=== PATIENT | male | born 1995 | race African-American/Black ===

== ENCOUNTER → 2018-03-24 | Outpatient (CLI) | payer MEDICAID ==
--- NOTE | 2018-03-24 16:34 | RADIOLOGY REPORT (SQ) ---
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 NUMBER OF VIEWS: Three views. TECHNIQUE: AP and lateral views of the sacrum and coccyx. LIMITATIONS: None. FINDINGS: MINERALIZATION: There is osteopenia. BONES: There appears to been a old injury of the lower sacrum and possibly coccyx. No evidence of an acute fracture or dislocation. There is some lucency within the proximal cortex raising the possibi lity of osteomyelitis. SOFT TISSUES: There is subcutaneous gas consistent with the known ulcer. OTHER: No other significant finding. IMPRESSION: Soft tissue gas. Slight lucency is noted in the cortex of the lower sacral segment. Os teomyelitis cannot be excluded. TECHNICAL DOCUMENTATION: JOB ID: [id number] [employer]- All Rights Reserved Reading location - IP/workstation name: [email or web address]
[2018-03-24 16:35] LABS: ABSOLUTE LYMPHOCYTES (AUTO) 1.3 10^3/uL (0.5-4.7); ABSOLUTE MONOCYTES (AUTO) 0.7 10^3/uL (0.1-1.4); ABSOLUTE NEUT (AUTO) 4.3 10^3/uL (1.7-8.2); BASOPHILS % (AUTO) 0.4 % (0-2); EOSINOPHILS % (AUTO) 0.2 % (0-6); HEMATOCRIT 31.8 % (37.9-51.0); LYMPHOCYTES % (AUTO) 20.4 % (13-45); MEAN CORPUSCULAR HEMOGLOBIN 23.5 pg (27.0-33.4); MEAN CORPUSCULAR HGB CONC 31.5 g/dL (32.0-36.0); MEAN CORPUSCULAR VOLUME 75 fl (80-97); MONOCYTES % (AUTO) 10.8 % (3-13); PLATELET COUNT 629 10^3/uL (150-450); RED BLOOD COUNT 4.27 10^6/uL (4.35-5.55); SEGMENTED NEUTROPHILS % (AUTO) 68.2 % (42-78); TOTAL CELLS COUNTED % (AUTO) 100 %; WHITE BLOOD COUNT 6.3 10^3/uL (4.0-10.5)
[2018-03-24 16:54] LABS: ALANINE AMINOTRANSFERASE 6 U/L (21-72); ALKALINE PHOSPHATASE 154 U/L (38-126); ANION GAP 8 (5-19); ASPARTATE AMINO TRANSFERASE 14 U/L (17-59); BILIRUBIN,DIRECT 0.2 mg/dL (0.0-0.4); BILIRUBIN,TOTAL 0.2 mg/dL (0.2-1.3); BLOOD UREA NITROGEN 14 mg/dL (7-20); C-REACTIVE PROTEIN 86.3 mg/L (<10.0); CALCIUM 8.6 mg/dL (8.4-10.2); CARBON DIOXIDE 28 mmol/L (22-30); CHLORIDE 103 mmol/L (98-107); GLUCOSE 90 mg/dL (75-110); POTASSIUM 4.4 mmol/L (3.6-5.0); SODIUM 138.8 mmol/L (137-145)
[2018-03-24 17:22] LABS: ERYTHROCYTE SEDIMENTATION RATE 78 mm/hr (0-15)
== END ==
LOC: RAD 15:45
PROVIDERS: ATTEND Nurse Practitioner
DX: L89.154 Pressure ulcer of sacral region, stage 4 (principal); M85.88 Other specified disorders of bone density and structure, other site
CPT/HCPCS: 36415; 72220; 80053; 85025; 85652; 86140

== ENCOUNTER → 2018-05-26 | Outpatient (CLI) | payer MEDICAID ==
--- NOTE | 2018-05-26 15:03 | RADIOLOGY REPORT (SQ) ---
EXAM DESCRIPTION: SACRUM AND COCCYX COMPLETED DATE/TIME: 05/26/2018 2:40 pm REASON FOR STUDY: L89.154 PRESSURE ULCER OF SACRAL REGION, STAGE 4 L89.154 PRESSURE ULCER OF SACRAL REGION, STAGE 4 COMPARISON: 04/13/2018 None. NUMBER OF VIEWS: Three views. TECHNIQUE: AP, lateral, and tilt views of the sacrum and coccyx. LIMITATIONS: None. FINDINGS: MINERALIZATION: Osteopenia. BONES: The osseous structures are stable in appearance. Deformity of the distal sacrum and coccyx, may be related prior remote injury. As on the prior examination, subcutaneous gas in the region of t he known ulcer adjacent to the distal sacrum-coccyx. No evidence for significant destruction of bone . SOFT TISSUES: See above discussion. OTHER: Moderate to marked rectal burden. IMPRESSION: 1. As on the previous examination dated 03/24/2018, subcutaneous gas in the posterior sof t tissues adjacent to the distal sacrum-coccyx. 2. Osteopenia is noted. As can best be determined, no radiographic evidence for destruction of bone. TECHNICAL DOCUMENTATION: JOB ID: [id number] [employer]- All Rights Reserved Reading location - IP/workstation name: [email or web address]
== END ==
LOC: RAD 14:11
PROVIDERS: ATTEND Nurse Practitioner Family
DX: L89.154 Pressure ulcer of sacral region, stage 4 (principal)
CPT/HCPCS: 72220